=== PATIENT | female | born 1965 | race Caucasian/White ===

== ENCOUNTER → 2016-08-02 | Outpatient (REF) | payer OTHER | LOC: M LAB REF 20:41 | PROVIDERS: ATTEND Physician Assistant | DX: Z11.3 Encounter for screening for infections with a predominantly sexual mode of transmission (principal) ==

== ENCOUNTER → 2017-10-15 | Outpatient (REF) | payer OTHER | LOC: M WUC 19:25 | DX: R19.7 Diarrhea, unspecified (principal) ==